=== PATIENT | female | born 2000 | race Two or more races ===

== ENCOUNTER 2025-09-28 09:54 | Inpatient (IN) | payer MEDICAID, SELFPAY ==
[2025-09-28] VITALS (177 sets, daily range): BP systolic 124–195; BP diastolic 68–99; PULSE 58–93; RESP 18–100; TEMP 36.7–37; O2SAT 89–100; BMI 41.3
--- NOTE | 2025-09-28 10:24 | XR_ITS ---
Examination: Complete OB ultrasound greater than 14 weeks Date and time of exam: August 29, 2025, 1047 hours INDICATIONS: Nonreactive NST today, decelerations Findings: Viable intrauterine single fetus with single amniotic sac presentation cephalic Cardiac motion 144 bpm Placenta anterior grade 2 Umbilical cord insertion 3 vessel seen Amniotic fluid index 2.8 cm Cervix 4.9 cm Ovaries obscured by the fetus. Composite estimated gestational age based on BPD, head circumference, abdominal circumference, femur length is 36 weeks 4 days Estimated weight 2969 g. Survey of intracranial anatomy, spinal anatomy, abdominal anatomy, four-chamber heart performed with no abnormalities identified. Impression: Viable intrauterine gestation cephalic presentation.
--- NOTE | 2025-09-28 10:52 | XR_ITS ---
Examination: Biophysical profile, ultrasound Date and time of exam: September 28, 2025, 1144 hours INDICATIONS: deceleration today, limited care Technique: Multiple transabdominal sonographic images of the pelvis abdomen obtained. Attention is directed to the breathing movement, gross body movement, amniotic fluid volume and tone. Findings: Amniotic fluid index 2.8 cm Total biophysical profile is 6 of 8. breathing movement is 2. Gross body movement is 2. tone is 2. Qualitative amniotic fluid volume is 0 Impression: Biophysical profile is 6 of 8.
[2025-09-28] MEDS: TERBUTALINE SULF INJ 1 MG/ML VIAL 0.25 MG SC (11:06)
[2025-09-28] MEDS: RINGERS LACTATED 1000 ML 1,000 ML 100 ML IV ×3 (11:16→15:56)
[2025-09-28 11:41] LABS: Basophils # (Auto) 0.0 Thou/mm3 (0.0-0.2); Basophils % (Auto) 0 % (0-2.5); Eosinophils # (Auto) 0.1 Thou/mm3 (0.0-0.5); Eosinophils % (Auto) 1 % (0-10); Hematocrit 35.7 % (36.0-46.0); Hemoglobin 11.9 g/dL (12.0-16.0); Immature Granulocytes Auto 0.09 Thou/mm3 (0.00-0.00); Lymphocytes # (Auto) 2.7 Thou/mm3 (1.0-4.8); Lymphocytes % (Auto) 28 % (10-50); Mean Corpuscular HGB Conc 33.3 g/dl (31.0-37.0); Mean Corpuscular Hemoglobin 30.5 pg (25.0-35.0); Mean Corpuscular Volume 92 fL (80-100); Monocytes # (Auto) 0.5 Thou/mm3 (0.0-0.8); Monocytes % (Auto) 5 % (0-12); Neutrophils # (Auto) 6.5 Thou/mm3 (1.8-7.7); Neutrophils % (Auto) 65 % (37-80); Nucleated Red Blood Cell # 0.00 Thou/mm3 (0.00-0.00); Nucleated Red Blood Cell % 0 /100 WBC (0); Platelet Count 164 Thou/mm3 (140-440); RDW Standard Deviation 42.7 fL (36.4-46.3); Red Blood Count 3.90 Miln/mm3 (4.00-5.20); White Blood Count 9.9 Thou/mm3 (3.6-11.0)
[2025-09-28 12:17] LABS: Syphilis Nonreactive (Nonreactive)
--- NOTE | 2025-09-28 12:33 | ESHP_ITS ---
Documentation for date of: 09/28/25 OB Labor/Induct. HPI History of Present Illness Chief complaint: contractions : 1 Para: 0 Term pregnancies: 0 pregnancies: 0 Living children: 0 History of Abortions: Spontaneous and Elective: 0 History of Vaginal deliveries: 0 History of sections: No History of : No Date of last menstrual period: 01/02/25 VÍCTOR: 10/11/25 Gestational Age (weeks): 38 Gestational Age (days): 1 Gestational age based on last menstrual period: 38 History of present illness: Patient presents for regular, painful ctx. No LOF. No vaginal bleeding. Normal movement. No fevers/chills. History of Present Dating criteria: other (uncertain) Adequate Care: Yes Abnormal ultrasound findings: patient reports normal ultrasounds done in [place] Narrative: patient had care in [place] to [place] in 3rd [place] (no records for this care), but had [address] Brown recently and labs were ordered/performed Labs Maternal Blood Type: O Pos Labs: Negative: RPR, Hepatitis B, Rubella Titre, HIV and Chlamydia and Unknown: Gonorrhea, Herpes Type 1, Herpes Type 2, Group Beta Strep and Covid-19 Narrative: 1hr glucola 113 UDS negative Hgb 12.2, plt 163 Rubella non-immune Hep A/B/C negative/non-reactive NG/CT testing, NIPT and SMA testing done but not yet resulted Review of Systems Review of Systems Narrative Review of Systems: Review of Systems Systems Reviewed: All systems reviewed, normal except as documented Constitutional Constitutional: Denies body ache(s), Denies chills, Denies fever(s) and Denies headache(s) ENT Ears, Nose, Mouth, and Throat: Denies headache(s) and Denies vertigo Cardiovascular Cardiovascular: Denies chest pain, Denies palpitations, Denies dyspnea and Denies syncope Respiratory Respiratory: Denies cough, Denies dyspnea Gastrointestinal Gastrointestinal: Denies nausea and Denies vomiting Neurologic Neurologic: Denies convulsions, Denies headache(s), Denies other visual disturbances, Denies syncope and Denies vertigo Past Medical History Family History OTHER FAMILY HX: non-contributory Surgical History SURGICAL: Negative Section OTHER SURGICAL HX: denies Social History SOCIAL: Single, living with her aunt. Her brother is here as support person. No ETOH/illicit drugs. Former smoker. Past Medical History Comments PMH COMMENT: Current BMI 41.3 Meds Home Medications and Allergies Allergies Allergy/AdvReac Type Severity Reaction Status Date / Time No Known Allergies Allergy Verified 09/28/25 09:58 OB Exam Physical Exam Vital signs: Temp Pulse Resp BP Pulse Ox 98.6 F 81 18 148/91 H 100 09/28/25 10:10 09/28/25 11:44 09/28/25 10:10 09/28/25 11:44 09/28/25 12:31 Narrative: General: well developed, well nourished, no acute distress, conversant Cardiac: normal heart rate Lungs: breathing without distress Abdomen: soft, gravid, non-tender, no rebound or guarding Extremities: 1+ edema BLE Detailed Labor and Delivery Exam Dilation (cm): 3 Effacement (%): 80 Cervix position: posterior station: -2 Presentation: Vertex Membranes: intact Baseline heart rate: 150 monitor accelerations: 15x15 monitor decelerations: Recurrent (Initially recurrent late/variable FHR decels occurred with ctx ) terminal makeup operator variability: Moderate (11-25) Contraction frequency (min): q3-4min OB Results Labs 09/28/25 11:10 Labs: Short CBC 09/28/25 Range/Units 11:10 WBC 9.9 (3.6-11.0) Thou/mm3 Hgb 11.9 L (12.0-16.0) g/dL Hct 35.7 L (36.0-46.0) % Plt Count 164 (140-440) Thou/mm3 Impressions Impression: Examination: Biophysical profile, ultrasound Date and time of exam: September 28, 2025, 1144 hours INDICATIONS: deceleration today, limited care Technique: Multiple transabdominal sonographic images of the pelvis abdomen obtained. Attention is directed to the breathing movement, gross body movement, amniotic fluid volume and tone. Findings: Amniotic fluid index 2.8 cm Total biophysical profile is 6 of 8. breathing movement is 2. Gross body movement is 2. tone is 2. Qualitative amniotic fluid volume is 0 Impression: Biophysical profile is 6 of 8. --- Examination: Complete OB ultrasound greater than 14 weeks Date and time of exam: August 29, 2025, 1047 hours INDICATIONS: Nonreactive NST today, decelerations Findings: Viable intrauterine single fetus with single amniotic sac presentation cephalic Cardiac motion 144 bpm Placenta anterior grade 2 Umbilical cord insertion 3 vessel seen Amniotic fluid index 2.8 cm Cervix 4.9 cm Ovaries obscured by the fetus. Composite estimated gestational age based on BPD, head circumference, abdominal circumference, femur length is 36 weeks 4 days Estimated weight 2969 g. Survey of intracranial anatomy, spinal anatomy, abdominal anatomy, four-chamber heart performed with no abnormalities identified. Impression: Viable intrauterine gestation cephalic presentation. OB Assessment & Plan Assessment and Plan (1) Oligohydramnios in [place] in third trimester: Status: Acute Assessment and plan: Rachell is a 25yo with SIUP at 38&1wk presenting in early labor with SCE 3/80/-2, but on presentation there were recurrent late/variable FHR decels heather 90's that resolved after terbutaline and IVF. On evaluation, she was noted to have CHARLETTE 2.8cm (BPP 6/8). Mild range bp, benign exam other than 1+ edema BLE. EFW 2969g c/w 36w4d. Cephalic. No sx of pre-E. No records to establish good dating, but given the constellation of concerning findings, delivery is indicated. PMhx/ significant for: -Patient had care in [place] in 3rd [place] (no records for this care), but had [address] Brown recently and labs were ordered/performed -Current BMI 41.3 -Rubella non-immune -Single, living with aunt, brother is support person Plan: -Admit to L&D -Establish IV, labs to include OB panel and PIH labs -CEFM -NPO -Counseled/consented re: possible augmentation of labor and , discussed if FHR decels return and are recurrent, may need to perform section- patient voiced her understanding -GBS status: unknown. Abx ppx ordered. -Needs social work consult (2) Non-reassuring heart rate or rhythm affecting management of fetus: Status: Acute (3) Obesity affecting in third trimester: Status: Acute (4) Rubella non-immune status, antepartum: Status: Acute (3) Obesity affecting in third trimester Qualifiers: Obesity type affecting : unspecified obesity Qualified Code(s): O 99.213 - Obesity complicating , third trimester
[2025-09-28] MEDS: Ampicillin Inj 2,000 MG in SODIUM CHLORIDE 0.9% (POP) 100 ML 200 MG IV (13:05)
[2025-09-28 13:33] LABS: Alanine Aminotransferase 18 U/L (10-49); Albumin, Serum 3.8 gm/dL (3.5-5.0); Albumin/Globulin Ratio 1.4 (1.2-2.2); Alkaline Phosphatase 248 U/L (46-116); Anion Gap 10 (7-16); Aspartate Amino Transferase 30 U/L (0-34); BUN/Creatinine Ratio 11 Ratio (12-20); Bilirubin,Total 0.2 mg/dL (0.3-1.2); Blood Urea Nitrogen 8 mg/dL (9-23); Calcium 8.7 mg/dL (8.3-10.6); Calcium (Corrected) 8.9 mg/dL (8.5-10.1); Carbon Dioxide 23.1 mMol/L (20.0-31.0); Chloride 108 mMol/L (98-107); Creatinine (Component) 0.7 mg/dL (0.6-1.3); Estimated Creatinine Clearance 168.4 mL/min (>60); Globulin 2.7 gm/dL (2.3-3.5); Glucose 77 mg/dL (74-106); Osmolality,Calculated 278 (275-295); Potassium 4.2 mMol/L (3.4-5.1); Sodium 141 mMol/L (136-145); Total Protein 6.5 gm/dL (5.7-8.2); Uric Acid 6.1 mg/dL (3.1-7.8); eGFR > 60 See Note
[2025-09-28 13:49] LABS: Fibrinogen 398 mg/dL (175-375); INR 0.9 (0.9-1.3); Partial Thromboplastin Time 28.6 Seconds (22.0-36.0); Prothrombin Time 9.5 Seconds (9.0-12.2)
[2025-09-28 13:51] LABS: Hepatitis B Surface Antigen Non Reactive (Non React); Rubella, IgG Antibody Reactive (Immune)
[2025-09-28 13:53] LABS: Collection Type, Urine Clean Catch
[2025-09-28 14:09] LABS: Creatinine,Random Urine 121 mg/dL (30-125); Protein Total, Random Urine > 250 mg/dL (1-14)
[2025-09-28 14:29] LABS: Bilirubin,Urine Negative (Negative); Blood,Urine 1+ (Negative); Clarity,Urine Clear (Clear/Hazy); Color,Urine Yellow (Lt Yel-Yel); Glucose, Urine Negative (Negative); Ketones,Urine Negative (Negative); Leukocyte Esterase,Urine Positive (Negative); Nitrite,Urine Negative (Negative); PH,Urine 6.0 (5.0-7.0); Protein,Urine 2+ (Neg - Trace); RBC,Urine 3 /hpf (0-3); Specific Gravity,Urine 1.017 (1.001-1.035); Squamous Epithelial Cell,Urine 4 /hpf (0-5); Urobilinogen,Urine Negative mg/dL (0.0-1.0); WBC,Urine 5 /hpf (0-5)
[2025-09-28 16:24] LABS: HIV (1&2) Antibody Rapid Non-Reactive
[2025-09-28] MEDS: Ampicillin Inj 1,000 MG in SODIUM CHLORIDE 0.9% (Popper) 50 ML 50 MG IV ×2 (17:45→21:09)
--- NOTE | 2025-09-28 18:26 | PD.LDPN ---
Documentation for date of: 09/28/25 OB Labor Progress Note Pelvic Exam Dilation (cm): 6 Effacement (%): 80 station: -2 Amniotic membrane status: Intact Contractions Monitor mode: External Contraction frequency: 4-5 Contraction intensity: Moderate Status status: Category ll Assessment and Plan Comments: Patient comfortable with epidural. Mild range bp's resolved, now normotensive since no longer in pain. Afebrile. Urine p:c resulted 2.06. Patient meets criteria for pre-eclampsia withOUT severe features. Suspect this is the cause of oligohydramnios. Other PIH labs wnl: Hgb 11.9, plt 164, urine creat 0.7, LFTs wnl. Cat II FHRT for occasional late vs early decels, min-mod viola, +accels SCE: 6/80/-2, AROM performed with scant clear fluid noted Patient making excellent cervical change on her own without augmentation. CEFM Will continue to closely monitor Safe to proceed Adry Cardenas MD History of Present Illness HPI Patient presents for regular, painful ctx. No LOF. No vaginal bleeding. Normal movement. No fevers/chills.
[2025-09-28 19:45] LABS: Amphetamine/Metham Scrn,Ur OB Negative (Negative); Benzoylecgonine Screen, Ur OB Negative (Negative); Opiate Screen,Urine OB Negative (Negative); THC Screen,Urine OB Negative (Negative)
[2025-09-28] MEDS: TRANEXAMIC ACID 1,000 MG IVPB 1,000 MG/100 ML BAG 200 MG IV (22:39)
[2025-09-28] MEDS: OXYTOCIN in NS 20 units 20 UNIT/1,000 ML BAG 125 UNIT IV (22:39)
--- NOTE | 2025-09-28 22:51 | OBDSUM_ITS ---
Data ([facility]) Data Hx Section: No : 1 Term: 0 : 0 Livin Abortions: Spontaneous & Theraputic: 0 Delivery Data ([facility]) Labor Data Initiation of labor: Spontaneous Induction/Augmentation Agent: None ROM date: 09/28/25 ROM time: 18:22 Amniotic membrane rupture type: Artificial Amniotic fluid description: Clear Delivery Data Onset of labor date: 09/28/25 Onset of labor time: 13:00 Complete dilation date: 09/28/25 Complete dilation time: 21:51 delivery date: 09/28/25 delivery time: 22:17 Placenta delivery date: 09/28/25 Placenta delivery time: 22:22 Stage 1 total time: Labor - Stage 1 Duration 8 hours and 51 minutes Delivered by: Adry Cardenas Delivery nurse: Deion Bañuelos RN [place] nurse: Karli Escobedo RN Nursing Informatics Analyst at delivery: No Support person(s) at delivery: pt's friend and mother Other staff at delivery: Regan Griffin charge nurse Delivery Method Delivery method: Normal Vaginal Delivery Presentation: Vertex Anesthesia Type Anesthesia Type: Epidural Placenta Placenta delivery description: Spontaneous Cord blood sent to lab: Yes cord blood collection: Cord Blood Type Episiotomy Episiotomy description: None EBL Estimated blood loss (ml): 300 Umbilical Cord cord description: 3 Vessels Additional Procedures Rachell is a 25yo [id number] s/p uncomplicated at 38&1wk after presenting in early labor, delivering at 2217 on 09/28/2025. Pre-eclampsia withOUT severe features and oligohydramnios were diagnosed upon admission. On presentation, SCE was 3/80/-2. She progressed with only AROM to C/C/+1 at which point she began pushing. She received an epidural during labor. With good maternal pushing efforts, infant's head delivered OA and restituted GUILLERMO. Left anterior shoulder delivered easily followed by posterior shoulder and corpus. Infant had spontaneous cry and was vigorous. Apgars 9/9. Infant placed on maternal abdomen where nose/mouth were suctioned and dried/stimulated. After approximately 2 minutes, cord was clamped x2 and cut by patient's friend. Cord blood collected for typing. With fundal massage and cord traction, placenta delivered spontaneously and intact with 3 vessel centrally inserted cord. Bimanual massage performed and IV pitocin given per protocol with fundus then firm at u-2cm and hemostasis noted. Inspection of perineum and vagina revealed a right labial laceration and a 1st degree midline perineal laceration which were repaired in routine fashion with 3-0 vicryl- total reapproximation and hemostasis achieved. Small trickle of blood, so sweep just within cervix/KAYLYNN performed which retrieved a small amount of clot. TXA 1g IV given and cytotec 800mcg PV placed as ppx against future bleeding. All counts correct x2. Mom and infant were doing well when I left the room. Adry Cardenas MD Complications Complications: none [place] Data ([facility]) Data order: 1 [place]'s gender: Male Identification band number: [id number] [place] length: 50.8 cm 1 minute: 9 5 minutes: 9
[2025-09-28] MEDS: IBUPROFEN TAB 400 MG TABLET 800 MG PO (23:00)
[2025-09-29] VITALS (43 sets, daily range): BP systolic 115–158; BP diastolic 76–108; PULSE 67–114; RESP 16–25; TEMP 36.6–37.1; O2SAT 96–100
[2025-09-29] MEDS: NIFEdipine XL 30 MG TABCR PO ×3 (00:08→21:51)
[2025-09-29] MEDS: Magnesium Sulfate 4 GM Ivpb 4 GM/50 ML BAG IV (00:28)
[2025-09-29] MEDS: MAGNESIUM SULF 20 GM IVPB 20 GM/500 ML BAG IV ×2 (00:51→10:25)
[2025-09-29 05:41] LABS: Basophils # (Auto) 0.1 Thou/mm3 (0.0-0.2); Basophils % (Auto) 0 % (0-2.5); Eosinophils # (Auto) 0.0 Thou/mm3 (0.0-0.5); Eosinophils % (Auto) 0 % (0-10); Hematocrit 31.0 % (36.0-46.0); Hemoglobin 10.5 g/dL (12.0-16.0); Immature Granulocytes Auto 0.10 Thou/mm3 (0.00-0.00); Lymphocytes # (Auto) 3.9 Thou/mm3 (1.0-4.8); Lymphocytes % (Auto) 24 % (10-50); Mean Corpuscular HGB Conc 33.9 g/dl (31.0-37.0); Mean Corpuscular Hemoglobin 31.2 pg (25.0-35.0); Mean Corpuscular Volume 92 fL (80-100); Monocytes # (Auto) 0.9 Thou/mm3 (0.0-0.8); Monocytes % (Auto) 5 % (0-12); Neutrophils # (Auto) 11.4 Thou/mm3 (1.8-7.7); Neutrophils % (Auto) 70 % (37-80); Nucleated Red Blood Cell # 0.00 Thou/mm3 (0.00-0.00); Nucleated Red Blood Cell % 0 /100 WBC (0); Platelet Count 145 Thou/mm3 (140-440); RDW Standard Deviation 44.0 fL (36.4-46.3); Red Blood Count 3.37 Miln/mm3 (4.00-5.20); White Blood Count 16.4 Thou/mm3 (3.6-11.0)
[2025-09-29] MEDS: BENZO/LANO/ALOE (Dermoplast) 60 GM CAN 1 SPRAY TOP (05:50)
--- NOTE | 2025-09-29 08:42 | ESPR_ITS ---
Subjective Subjective Interval history: Delivery type: , patient is on magnesium for severe preeclampsia, blood pressure in the mild range. Patient doing well this morning. No acute complaints. Ambulating, tolerating p.o., and voiding without difficulty. HTN/Pre-E screen negative: No CP, SOB, MCCARTHY, visual changes, RUQ pain. : Yes Lochia: diminishing Bowel: Flatus + / BM + UOP: Adequate Exam Vital Signs Temp Pulse Resp BP Pulse Ox O2 Del Method 98.5 F 72 19 139/88 H 99 Room Air 09/29/25 04:00 09/29/25 06:00 09/29/25 06:00 09/29/25 06:00 09/29/25 06:00 09/29/25 06:00 Constitutional Constitutional: no acute distress Routine HEENT Exam Head: Present normocephalic and atraumatic Eye: Present EOMI and PERRL ENT: Present mucous membranes moist Routine Neck Exam Neck: Present supple and trachea midline Routine Respiratory Exam Respiratory: Present chest non-tender, lungs clear, normal breath sounds and no resp distress Routine Cardiovascular Exam Cardiovascular: Present RRR Routine Abdominal Exam Abdominal: Present soft and normoactive bowel sounds Routine Extremities Exam Extremities: Present full ROM Routine Skin Exam Skin: Present intact, dry and warm Routine Neurological Exam Neurological: Present alert, oriented X3 and CN II-XII intact Routine Psychiatric Exam Psychiatric: Present normal affect and normal thought process Objective Labs 09/29/25 05:20 09/28/25 11:10 Labs: Laboratory Results - last 24 hr 09/28/25 09/28/25 09/28/25 11:10 11:10 13:00 WBC 9.9 RBC 3.90 L Hgb 11.9 L Hct 35.7 L MCV 92 MCH 30.5 MCHC 33.3 RDW Std Deviation 42.7 Plt Count 164 Neut % (Auto) 65 Lymph % (Auto) 28 [place] % (Auto) 5 Eos % (Auto) 1 Baso % (Auto) 0 Neut # (Auto) 6.5 Lymph # (Auto) 2.7 [place] # (Auto) 0.5 Eos # (Auto) 0.1 Baso # (Auto) 0.0 Immature Gran # (Auto) 0.09 H Absolute Nucleated RBC 0.00 Immature Gran % 1 H Nucleated RBC % 0 PT 9.5 INR 0.9 APTT 28.6 Fibrinogen 398 H Sodium 141 Potassium 4.2 Chloride 108 H Carbon Dioxide 23.1 Anion Gap 10 BUN 8 L Creatinine 0.7 Estim Creat Clear Calc 168.4 eGFR > 60 BUN/Creatinine Ratio 11 L Glucose 77 Calculated Osmolality 278 Uric Acid 6.1 Calcium 8.7 Corrected Calcium 8.9 Total Bilirubin 0.2 L AST 30 ALT 18 Alkaline Phosphatase 248 H Total Protein 6.5 Albumin 3.8 Globulin 2.7 Albumin/Globulin Ratio 1.4 Ur Collection Type Clean Catch Urine Color Yellow Urine Clarity Clear Urine pH 6.0 Ur Specific [place] 1.017 Urine Protein 2+ A Urine Glucose (UA) Negative Urine Ketones Negative Urine Blood 1+ A Urine Nitrite Negative Urine Bilirubin Negative Urine Urobilinogen (Auto) Negative Ur Leukocyte Esterase Positive Urine RBC 3 Urine WBC 5 Ur Squamous Epith Cells 4 Urine Bacteria None Ur Random Creatinine 121 U Random Total Protein > 250 H Urine Opiates Screen U Amphetamin/Meth Scrn U Cocaine Metab Screen U Marijuana (THC) Screen Syphilis Serology Nonreactive Hep Bs Antigen Non Reactive HIV 1&2 Antibody Rapid Non-Reactive Rubella IgG Antibody Reactive (Immune) Blood Type O Positive Antibody Screen NEGATIVE Cancelled Blood Bank Wristband ID Yes 09/28/25 09/29/25 17:00 05:20 WBC 16.4 H D RBC 3.37 L Hgb 10.5 L Hct 31.0 L MCV 92 MCH 31.2 MCHC 33.9 RDW Std Deviation 44.0 Plt Count 145 Neut % (Auto) 70 Lymph % (Auto) 24 [place] % (Auto) 5 Eos % (Auto) 0 Baso % (Auto) 0 Neut # (Auto) 11.4 H Lymph # (Auto) 3.9 [place] # (Auto) 0.9 H Eos # (Auto) 0.0 Baso # (Auto) 0.1 Immature Gran # (Auto) 0.10 H Absolute Nucleated RBC 0.00 Immature Gran % 1 H Nucleated RBC % 0 PT INR APTT Fibrinogen Sodium Potassium Chloride Carbon Dioxide Anion Gap BUN Creatinine Estim Creat Clear Calc eGFR BUN/Creatinine Ratio Glucose Calculated Osmolality Uric Acid Calcium Corrected Calcium Total Bilirubin AST ALT Alkaline Phosphatase Total Protein Albumin Globulin Albumin/Globulin Ratio Ur Collection Type Urine Color Urine Clarity Urine pH Ur Specific [place] Urine Protein Urine Glucose (UA) Urine Ketones Urine Blood Urine Nitrite Urine Bilirubin Urine Urobilinogen (Auto) Ur Leukocyte Esterase Urine RBC Urine WBC Ur Squamous Epith Cells Urine Bacteria Ur Random Creatinine U Random Total Protein Urine Opiates Screen Negative U Amphetamin/Meth Scrn Negative U Cocaine Metab Screen Negative U Marijuana (THC) Screen Negative Syphilis Serology Hep Bs Antigen HIV 1&2 Antibody Rapid Rubella IgG Antibody Blood Type Antibody Screen Blood Bank Wristband ID Assessment & Plan Problem List (1) Oligohydramnios in [place] in third trimester: Status: Acute (2) Non-reassuring heart rate or rhythm affecting management of fetus: Status: Acute (3) Obesity affecting in third trimester: Status: Acute (4) Rubella non-immune status, antepartum: Status: Acute (5) Severe preeclampsia: Status: Acute Assessment and plan: 1. Continue routine /post-op care 2. Labs reviewed, cbc appropriate 3. Remove dressing/Guerrero 4. Encourage to ambulate, shower 5. Encourage PO intake, breast feeding 6. Will continue magnesium for 24 hours . 7. Increase Procardia to 60 XL for more optimal blood pressure control Time Spent With Patient Time: Total time spent is greater than 50% in coordination of care (as documented) at patient's floor/unit and/or counseling patient:
[2025-09-29] MEDS: PRENATAL VITAMIN/FE FUM/FA TABLET 1 TAB PO (09:10)
[2025-09-29] MEDS: DOCUSATE SOD 100 MG CAPSULE PO ×2 (09:10→21:51)
[2025-09-29 10:46] LABS: Basophils # (Auto) 0.1 Thou/mm3 (0.0-0.2); Basophils % (Auto) 0 % (0-2.5); Eosinophils # (Auto) 0.0 Thou/mm3 (0.0-0.5); Eosinophils % (Auto) 0 % (0-10); Hematocrit 31.8 % (36.0-46.0); Hemoglobin 10.9 g/dL (12.0-16.0); Immature Granulocytes Auto 0.09 Thou/mm3 (0.00-0.00); Lymphocytes # (Auto) 2.6 Thou/mm3 (1.0-4.8); Lymphocytes % (Auto) 19 % (10-50); Mean Corpuscular HGB Conc 34.3 g/dl (31.0-37.0); Mean Corpuscular Hemoglobin 31.2 pg (25.0-35.0); Mean Corpuscular Volume 91 fL (80-100); Monocytes # (Auto) 0.9 Thou/mm3 (0.0-0.8); Monocytes % (Auto) 7 % (0-12); Neutrophils # (Auto) 10.3 Thou/mm3 (1.8-7.7); Neutrophils % (Auto) 74 % (37-80); Nucleated Red Blood Cell # 0.00 Thou/mm3 (0.00-0.00); Nucleated Red Blood Cell % 0 /100 WBC (0); Platelet Count 149 Thou/mm3 (140-440); RDW Standard Deviation 43.9 fL (36.4-46.3); Red Blood Count 3.49 Miln/mm3 (4.00-5.20); White Blood Count 14.0 Thou/mm3 (3.6-11.0)
[2025-09-29 11:21] LABS: Alanine Aminotransferase 15 U/L (10-49); Albumin, Serum 3.4 gm/dL (3.5-5.0); Albumin/Globulin Ratio 1.4 (1.2-2.2); Alkaline Phosphatase 209 U/L (46-116); Anion Gap 9 (7-16); Aspartate Amino Transferase 29 U/L (0-34); BUN/Creatinine Ratio 8 Ratio (12-20); Bilirubin,Total 0.4 mg/dL (0.3-1.2); Blood Urea Nitrogen 6 mg/dL (9-23); Calcium 7.7 mg/dL (8.3-10.6); Calcium (Corrected) 8.2 mg/dL (8.5-10.1); Carbon Dioxide 24.9 mMol/L (20.0-31.0); Chloride 106 mMol/L (98-107); Creatinine (Component) 0.8 mg/dL (0.6-1.3); Estimated Creatinine Clearance 147.4 mL/min (>60); Globulin 2.5 gm/dL (2.3-3.5); Glucose 92 mg/dL (74-106); LDH (Lactate Dehydrogenase) 198 U/L (120-246); Magnesium 4.2 mg/dL (1.6-2.6); Osmolality,Calculated 277 (275-295); Potassium 3.7 mMol/L (3.4-5.1); Sodium 140 mMol/L (136-145); Total Protein 5.9 gm/dL (5.7-8.2); Uric Acid 6.5 mg/dL (3.1-7.8); eGFR > 60 See Note
[2025-09-29] MEDS: IBUPROFEN TAB 400 MG TABLET 800 MG PO (12:03)
[2025-09-29 14:38] LABS: Basophils # (Auto) 0.1 Thou/mm3 (0.0-0.2); Basophils % (Auto) 0 % (0-2.5); Eosinophils # (Auto) 0.0 Thou/mm3 (0.0-0.5); Eosinophils % (Auto) 0 % (0-10); Hematocrit 35.2 % (36.0-46.0); Hemoglobin 11.9 g/dL (12.0-16.0); Immature Granulocytes Auto 0.08 Thou/mm3 (0.00-0.00); Lymphocytes # (Auto) 2.7 Thou/mm3 (1.0-4.8); Lymphocytes % (Auto) 20 % (10-50); Mean Corpuscular HGB Conc 33.8 g/dl (31.0-37.0); Mean Corpuscular Hemoglobin 30.7 pg (25.0-35.0); Mean Corpuscular Volume 91 fL (80-100); Monocytes # (Auto) 0.7 Thou/mm3 (0.0-0.8); Monocytes % (Auto) 5 % (0-12); Neutrophils # (Auto) 10.3 Thou/mm3 (1.8-7.7); Neutrophils % (Auto) 74 % (37-80); Nucleated Red Blood Cell # 0.00 Thou/mm3 (0.00-0.00); Nucleated Red Blood Cell % 0 /100 WBC (0); Platelet Count 159 Thou/mm3 (140-440); RDW Standard Deviation 44.2 fL (36.4-46.3); Red Blood Count 3.88 Miln/mm3 (4.00-5.20); White Blood Count 13.9 Thou/mm3 (3.6-11.0)
[2025-09-29 15:02] LABS: Alanine Aminotransferase 17 U/L (10-49); Albumin, Serum 3.8 gm/dL (3.5-5.0); Albumin/Globulin Ratio 1.4 (1.2-2.2); Alkaline Phosphatase 232 U/L (46-116); Anion Gap 10 (7-16); Aspartate Amino Transferase 32 U/L (0-34); BUN/Creatinine Ratio 9 Ratio (12-20); Bilirubin,Total 0.3 mg/dL (0.3-1.2); Blood Urea Nitrogen 7 mg/dL (9-23); Calcium 7.9 mg/dL (8.3-10.6); Calcium (Corrected) 8.1 mg/dL (8.5-10.1); Carbon Dioxide 24.6 mMol/L (20.0-31.0); Chloride 105 mMol/L (98-107); Creatinine (Component) 0.8 mg/dL (0.6-1.3); Estimated Creatinine Clearance 147.4 mL/min (>60); Globulin 2.7 gm/dL (2.3-3.5); Glucose 115 mg/dL (74-106); LDH (Lactate Dehydrogenase) 212 U/L (120-246); Magnesium 3.9 mg/dL (1.6-2.6); Osmolality,Calculated 278 (275-295); Potassium 4.0 mMol/L (3.4-5.1); Sodium 140 mMol/L (136-145); Total Protein 6.5 gm/dL (5.7-8.2); Uric Acid 6.4 mg/dL (3.1-7.8); eGFR > 60 See Note
--- NOTE | 2025-09-29 15:44 | PC.NURSE ---
1240 RN was given verbal orders by Dr Leach to discontinue pts mag at 12 hours after start time, pt's mag stopped at 1410. Guerrero catheter removed, monitor disconnected, and patient helped out of bed to ambulate.
--- NOTE | 2025-09-29 16:11 | PC.SS ---
[employer] conducted bedside contact with the patient to address nursing referral indicating patient was late to care.? [employer] utilized translation services to assist with the discussion.? [employer] introduced self and role.? [employer] reviewed basis of referral.? Patient confirmed late to care due to the patient?s presence in [place] during majority of .? [place] 2 [place] ago.? Shortage of local providers did not enable the patient to obtain OB service in [place] until last Thursday.? Patient reports receiving OB services while in [place].? , Jesse; is the patient?s first child.? Infant delivered naturally.? Patient plans on the .? FOB will not be involved in the rearing of the .? FOB not listed. Patient is not receiving WIC, SNAP or TANF.? Patient denies history of alcohol/drug abuse.? Patient denies CWS intervention.? Patient denies episodes of domestic violence.? Patient denies possessing a history of mental health, reports no current possession of depression or anxiety.? Patient reports possessing appropriate supplies and equipment; to include a car seat.? Aunt will provide transportation upon discharge.? Patient describes possessing support system consisting of mother and extended family.? [employer] provided the patient with community resources to include [employer] and Warm Line.? No further intervention required at this time, social media marketer will be available to address any further concerns.? [employer] updated bedside nurse.?
[2025-09-29 20:40] LABS: Basophils # (Auto) 0.0 Thou/mm3 (0.0-0.2); Basophils % (Auto) 0 % (0-2.5); Eosinophils # (Auto) 0.0 Thou/mm3 (0.0-0.5); Eosinophils % (Auto) 0 % (0-10); Hematocrit 32.9 % (36.0-46.0); Hemoglobin 11.3 g/dL (12.0-16.0); Immature Granulocytes Auto 0.07 Thou/mm3 (0.00-0.00); Lymphocytes # (Auto) 2.6 Thou/mm3 (1.0-4.8); Lymphocytes % (Auto) 21 % (10-50); Mean Corpuscular HGB Conc 34.3 g/dl (31.0-37.0); Mean Corpuscular Hemoglobin 31.6 pg (25.0-35.0); Mean Corpuscular Volume 92 fL (80-100); Monocytes # (Auto) 0.8 Thou/mm3 (0.0-0.8); Monocytes % (Auto) 7 % (0-12); Neutrophils # (Auto) 8.6 Thou/mm3 (1.8-7.7); Neutrophils % (Auto) 71 % (37-80); Nucleated Red Blood Cell # 0.00 Thou/mm3 (0.00-0.00); Nucleated Red Blood Cell % 0 /100 WBC (0); Platelet Count 150 Thou/mm3 (140-440); RDW Standard Deviation 45.7 fL (36.4-46.3); Red Blood Count 3.58 Miln/mm3 (4.00-5.20); White Blood Count 12.1 Thou/mm3 (3.6-11.0)
[2025-09-29 21:06] LABS: Alanine Aminotransferase 15 U/L (10-49); Albumin, Serum 3.7 gm/dL (3.5-5.0); Albumin/Globulin Ratio 1.5 (1.2-2.2); Alkaline Phosphatase 210 U/L (46-116); Anion Gap 10 (7-16); Aspartate Amino Transferase 30 U/L (0-34); BUN/Creatinine Ratio 8 Ratio (12-20); Bilirubin,Total 0.3 mg/dL (0.3-1.2); Blood Urea Nitrogen 6 mg/dL (9-23); Calcium 8.2 mg/dL (8.3-10.6); Calcium (Corrected) 8.4 mg/dL (8.5-10.1); Carbon Dioxide 24.7 mMol/L (20.0-31.0); Chloride 105 mMol/L (98-107); Creatinine (Component) 0.8 mg/dL (0.6-1.3); Estimated Creatinine Clearance 147.4 mL/min (>60); Globulin 2.5 gm/dL (2.3-3.5); Glucose 95 mg/dL (74-106); LDH (Lactate Dehydrogenase) 227 U/L (120-246); Magnesium 3.1 mg/dL (1.6-2.6); Osmolality,Calculated 277 (275-295); Potassium 4.0 mMol/L (3.4-5.1); Sodium 140 mMol/L (136-145); Total Protein 6.2 gm/dL (5.7-8.2); Uric Acid 7.0 mg/dL (3.1-7.8); eGFR > 60 See Note
[2025-09-30 04:02] VITALS: BP 113/76; PULSE 86; RESP 16; TEMP 36.5; O2SAT 98
[2025-09-30 08:00] VITALS: BP 132/83; PULSE 97; RESP 17; TEMP 36.8; O2SAT 98
[2025-09-30 08:38] VITALS: BP 132/83; PULSE 97
[2025-09-30] MEDS: NIFEdipine XL 30 MG TABCR PO (08:38)
[2025-09-30] MEDS: DOCUSATE SOD 100 MG CAPSULE PO (08:39)
[2025-09-30] MEDS: PRENATAL VITAMIN/FE FUM/FA TABLET 1 TAB PO (08:39)
--- NOTE | 2025-09-30 09:04 | PD.LDDS ---
DS: Providers Provider Date of admission: 09/28/25 11:39 Primary care physician: Broderick Stone MD Admitting Provider: Adry Cardenas MD Attending Provider on Admission: Parish Leach MD Consults: 09/28/25 22:49 Referral Routine Comment: Attending Provider on DC: Cynthia Cox MD Discharging Provider: Cynthia Cox MD DS: Diagnosis Discharge Diagnosis (1) Severe preeclampsia: Status: Acute (2) Rubella non-immune status, antepartum: Status: Acute (3) Obesity affecting in third trimester: Status: Acute (4) state: Status: Acute (5) Oligohydramnios in [place] in third trimester: Status: Acute Problem List Completed Was Problem List Reviewed/Reconciled?: Yes Summary/Hosp Course Brief History: Patient presents for regular, painful ctx. No LOF. No vaginal bleeding. Normal movement. No fevers/chills.h/o hypertension and now superimposed pre eclampsia and was on magnesium sulphate /discontinued last night Peripartum Data Delivery Method: Normal Vaginal Delivery Episiotomy Description: None Status at Discharge Cognitive/behavioral status at discharge: Patient has no/ complaints./ alertx3 Headache no Blurry vision no Chest pain no Palpitations no Shortness of breath no Nausea or vomiting or constipation no Back pain no Dysuria no Dizziness no calf pain no She is voiding spontaneously after catheter removal yes Passing flatus yes Lochia minimal yes Functional status at discharge: independent ambulation Overall status at discharge: patient is progressing back to baseline Time Spent with Patient Time attestation: Total time spent providing and/or coordinating discharge services: Exam Vital Signs Temp Pulse Resp BP Pulse Ox O2 Del Method 97.7 F 97 16 132/83 H 98 Room Air 09/30/25 04:02 09/30/25 08:38 09/30/25 04:02 09/30/25 08:38 09/30/25 04:02 09/30/25 04:02 Narrative Exam alert x3/ breast feeding chest clear CVS RRR NO thyromegaly Uterus is nontender Uterus is firm/ appropriate size Just below the umbilicus Bowel sounds present Abdomen soft no hernias noted/no CVAT No calf tenderness Edema mild Discharge Plan Plan Patient Disposition: HOME (Self Care) Patient condition on transfer: Stable Prescriptions/Referrals Prescriptions/Med Rec: New docusate sodium 100 mg Capsule 100 mg PO BID 10 Days Qty: 20 0RF ibuprofen 800 mg tablet 800 mg PO Q8H PRN (Reason: See Comments) 10 Days Qty: 20 0RF No Action PNV no.95-ferrous fumarate-FA [ Multivitamins] 28 mg iron- 800 mcg tablet 1 tab PO QDAY Referrals: No Primary/Family,Physician [Referring Provider] Bradly Brown MD [Referring Provider, Obstetrics] Patient/Caregiver Discharge Instructions Discharge Activity: activity as tolerated and other Other Discharge Activity Instructions:: vaginal rest and no heavy lifting for 6 weeks/ follow up in 3 days for BP check with her provider Other Discharge Diet Instructions: regular Education Materials: After a Vaginal , Understanding Preeclampsia, Breast Care After Print Language: French Activity Restrictions/Additional Instructions: follow up with Dr. Brown in 3 days for BP check / for visit, call clinic to schedule Stand Alone Forms: Tierney Award Info., Patient Portal Info Letter, Work/Release Restrictions Discharge Order Discharge Orders: Discharge (Routine); Ordered 09/30/25 Ordered By: Cynthia Cox Planned Discharge Date 09/30/25 (1) Severe preeclampsia Qualifiers: Trimester: third trimester Qualified Code(s): O14.13 - Severe pre-eclampsia, third trimester (3) Obesity affecting in third trimester Qualifiers: Obesity type affecting : unspecified obesity Qualified Code(s): O99.213 - Obesity complicating , third trimester
--- NOTE | 2025-09-30 11:30 | PC.NURSE ---
Called Dr. Cox she will send patient's Procardia when she comes in around 2, patient made aware verbalizes understanding
== END 2025-09-30 12:10 | disposition home or self-care (01) | DRG 560 ==
LOC: S4SX 23:02 → S4NX 09-29 01:14
PROVIDERS: Admitting Provider Obstetrics & Gynecology; PCP Internal Medicine; Visit Provider Obstetrics & Gynecology
DX: O41.03X0 Oligohydramnios, third trimester, not applicable or unspecified (principal); Z3A.38 38 weeks gestation of pregnancy; Z37.0 Single live birth; O70.0 First degree perineal laceration during delivery; O76 Abnormality in fetal heart rate and rhythm complicating labor and delivery; O99.214 Obesity complicating childbirth; Z87.891 Personal history of nicotine dependence; O14.14 Severe pre-eclampsia complicating childbirth
CPT/HCPCS: 36415; 59409; 76805; 76819; 80053; 80307; 81001; 82570; 83615; 83735; 84156; 84550; 85025; 85384; 85610; 85730; 86703; 86762; 86780; 86850; 86900; 86901; 87340; 94762; J0290; J1920; J2590; J2795; J3010; J3105; J3475; J3490; J7050; J7120; S0191; A9270